=== PATIENT | female | born 1965 | race Caucasian/White ===

== ENCOUNTER → 2022-12-13 07:45 | Outpatient (BNVA) | payer MEDICARE, SELFPAY | PROVIDERS: PCP Nurse Practitioner Family; Referring Provider Nurse Practitioner Family; Visit Provider Specialist | DX: R20.0 Anesthesia of skin (principal); R20.2 Paresthesia of skin; Z98.890 Other specified postprocedural states | CPT/HCPCS: 95910; 95912 ==

== ENCOUNTER → 2022-12-22 12:38 | Outpatient (BNVA) | payer MEDICARE, SELFPAY | PROVIDERS: PCP Nurse Practitioner Family; Referring Provider Nurse Practitioner Family; Visit Provider Student in an Organized Health Care Education/Training Program | DX: G56.01 Carpal tunnel syndrome, right upper limb (principal); R20.0 Anesthesia of skin; R20.2 Paresthesia of skin | CPT/HCPCS: 20526; 99204; J3301 ==

== ENCOUNTER → 2023-02-16 10:44 | Outpatient (BNVA) | payer MEDICARE, SELFPAY | PROVIDERS: PCP Nurse Practitioner Family; Visit Provider Student in an Organized Health Care Education/Training Program | DX: G56.01 Carpal tunnel syndrome, right upper limb (principal); M18.12 Unilateral primary osteoarthritis of first carpometacarpal joint, left hand; R20.0 Anesthesia of skin; R20.2 Paresthesia of skin | CPT/HCPCS: 20600; 73130; 99213 ==

== ENCOUNTER → 2023-03-23 09:56 | Outpatient (BNVA) | payer MEDICARE, SELFPAY | PROVIDERS: PCP Nurse Practitioner Family; Visit Provider Student in an Organized Health Care Education/Training Program | DX: M18.12 Unilateral primary osteoarthritis of first carpometacarpal joint, left hand (principal); G56.03 Carpal tunnel syndrome, bilateral upper limbs | CPT/HCPCS: 99214 ==

== ENCOUNTER 2023-04-11 10:02 | Day surgery (SDC) | payer MEDICARE, SELFPAY ==
[2023-04-10 12:43] VITALS: BMI 23.3
[2023-04-11] VITALS (10 sets, daily range): BP systolic 112–143; BP diastolic 73–102; PULSE 73–89; RESP 16–18; TEMP 36.1–36.5; O2SAT 97–100
--- NOTE | 2023-04-11 | XR_ITS ---
WS: [id number] views of the left first finger, 04/11/2023 Clinical Data: [facility] Comparison: Left hand, 02/16/2023 Findings: Dr. Bourne removed the left trapezium XR/XR finger LT min 2V [id number] Impression: Removal of left trapezium.
--- NOTE | 2023-04-11 10:32 | W.PM.OPSUD ---
Surgery/Procedure H&P Update DATE OF PROCEDURE: April 11, 2023 DATE H&P PERFORMED: 03/23/23 CHANGES TO PREVIOUS DOCUMENTATION: None. No change in patient's HPI since office visit. She continues to examine with positive carpal tunnel symptoms with a positive Tinel's median nerve compression test and Phalen's the left side. She also has positive CMC grind test and severe tenderness to palpation over the CMC joint. Patient's failed corticosteroid injections with me and today she states she had remembered that she did have a injection back when she was in [place] roughly a couple years ago. So at this point time she is failed to corticosteroid injections that only provided temporary relief. Ultimately she understands and agrees to proceed with surgical intervention with plan for left thumb basal joint arthroplasty and left carpal tunnel release surgery. She understands the risk benefits complication alternatives with surgical nonsurgical treatment options. Patient understands agrees with current plan. All questions answered. PREOP DIAGNOSIS: Left thumb basal joint arthritis, left carpal Tunnel syndrome PRIMARY INDICATION FOR PROCEDURE: Left thumb basal joint arthritis failed conservative treatment, left carpal tunnel syndrome PLANNED PROCEDURE: Operation Date: 04/11/23 11:30 Proposed Procedures p Left carpal tunnel release: 41784 Left thumb basil joint arthroscopy;74705, G56.02(Left) - Mian Bourne DO s Finger Joint Arthroplasty(Left) - Mian Bourne DO
[2023-04-11] MEDS: sodium chloride 0.9% 1,000 ML 30 ML IV (10:40)
[2023-04-11] MEDS: ketorolac 30 mg/mL INJ IVP (10:42)
[2023-04-11] MEDS: acetaminophen 1,000 MG/100 ML PIGGYBACK 400 MG IV (10:44)
--- NOTE | 2023-04-11 11:05 | ANES.PREANE2 ---
Pre-Anesthetic Assessment Height/Weight: Height 1.57 m Weight 58.06 kg Temp Pulse Resp BP Pulse Ox O2 Del Method 97.6 F 88 18 143/73 97 Room Air 04/11/23 10:16 04/11/23 10:16 04/11/23 10:16 04/11/23 10:16 04/11/23 10:16 04/11/23 10:24 Preop Diagnosis: Left thumb basal joint arthritis, left carpal Tunnel syndrome Operation Date: 04/11/23 11:30 Proposed Procedures p Left carpal tunnel release: 43579 Left thumb basil joint arthroscopy;18979, G56.02(Left) - Mian Bourne DO s Finger Joint Arthroplasty(Left) - Mian Bourne DO Familial anesthetic complications: None Was Beta Toshia taken within 24 hours: N/A Was Clonidine taken within 24 hours: N/A Last intake: Intake Last Liquid Date 04/10/23 Last Liquid Time 21:00 Last Solid Date 04/10/23 Last Solid Time 21:00 Social Alcohol and No tobacco up to 4 cocktails a night Exam alert, oriented x 3, clear to auscultation bilaterally and regular rate & rhythm Airway Mallampati: Class I Dentition: chipped History/ROS No significant complaints Anesthetic Plan ASA status: 2 Anesthesia: Choice Risk of > 500 ml blood loss (7ml/kg in children): No Medications/Allergies Home Medications Medication Instructions Recorded Confirmed Last Taken Type acetaminophen 325 mg capsule 650 mg PO BID PRN Pain, Mild 01/19/23 04/10/23 04/10/23 History (Tylenol) bupropion HCl 150 mg 24 hr tablet, 150 mg PO QAM #30 tabs 02/22/23 04/10/23 04/10/23 Rx extended release (Wellbutrin XL) cyclobenzaprine 10 mg tablet 10 mg PO .HS PRN muscle spasm #30 02/22/23 04/10/23 04/10/23 Rx tabs hydroxyzine HCl 25 mg tablet 100 mg PO .HS PRN insomnia #120 02/22/23 04/10/23 04/10/23 Rx tabs lamotrigine 200 mg tablet 200 mg PO DAILY #30 tabs 03/07/23 04/10/23 04/10/23 Rx (Lamictal) escitalopram oxalate 20 mg tablet 20 mg PO DAILY 04/10/23 04/10/23 04/10/23 History (Lexapro) Allergies Allergy/AdvReac Type Severity Reaction Status Date / Time codeine Allergy ADR-Nausea Verified 04/10/23 11:03 naltrexone AdvReac Severe Headaches, Verified 04/10/23 11:03 nausea trazodone AdvReac Intermediate Vomiting. Verified 04/10/23 11:03 excelon AdvReac Severe Dizzy, N & Uncoded 03/23/23 10:13 V, Diarrhea, shaky Current Medications Generic Name Dose Route Start Last Admin Trade Name Freq PRN Reason Stop Dose Admin Sodium Chloride 1,000 mls @ 30 mls/hr 04/11/23 10:15 04/11/23 10:40 Sodium Chloride 0.9% IV 04/12/23 10:14 30 mls/hr .Q24H CORBIN Administration PFSH Anesthesia Medical History Psychiatric care Right carpal tunnel syndrome Social History Smoking and tobacco status: never smoked Alcohol intake: never Substance/Drug Use: never Data Anesthesia Cardiac Studies: No Data to Display
--- NOTE | 2023-04-11 12:12 | ANES.PROC ---
Anesthesia Procedures Procedure/Date: 04/11/23 Nerve Block ^: Nerve Block 1: Main Anesthesia: general anesthesia Time Out Performed: Yes Consent: requested by attending/covering physician, from patient, risks and benefits reviewed and patient agrees to proceed Nerve block location: axillary (L) Anesthesia monitors applied: pulse oximetry, EKG and BP cuff Nerve block position: supine Anesthetic Used: ropivicaine 0.5% (30 ml) Ultrasound used to: recognize landmarks and visualize and ID brachial plexus Nerve Stimulator Used?: No Interscalene/Femoral BLK: 2 stimuplex 22 g needle used for position and inplane approach, visualize local anesthetic spread and no vascular puncture identified Injection: neg aspiration of heme Patient Tolerated Procedure: well and no complications
[2023-04-11] MEDS: ceFAZolin 2,000 MG in sodium chloride 0.9% (plus) 50 ML 100 MG IV (12:17)
[2023-04-11] MEDS: lidocaine-epi 1% 20 mL INJ INJECTION (12:54)
[2023-04-11] MEDS: gelatin 12-7 mm Sponge 1 EACH TOPICAL (13:38)
--- NOTE | 2023-04-11 14:08 | PM.OP2 ---
Brief Operative Note Date of procedure: 04/11/23 Pre-op diagnosis: Left carpal tunnel syndrome, left thumb basal joint arthritis Post-op diagnosis: same Procedure Done: Left carpal tunnel release Left median nerve neurolysis Left thumb basal joint arthroplasty and APL tendon slip transfer Surgeon: Mian Bourne Estimated blood loss (mL): 5 Complications: None Post-op Plan: Patient taken to PACU in stable condition recovering well. Splint on in place clean dry and intact patient receive appropriate discharge instruction as well as pain medication postoperatively. Plan to follow-up in the orthopedic office in 2 weeks for recheck on the incision. Patient understands with any questions or concerns contact the office. Condition: stable Disposition: same day Coding Level of Care Code Acute Code for Scott Suarez
--- NOTE | 2023-04-11 14:08 | PM.PACU ---
PACU note Narrative: Patient taken to PACU in stable condition pain controlled. Patient has regional anesthesia on in place unable to assess motor or sensory at this time. Patient's distal pulses palpable prior to dressing application as well as fingertips are warm well-perfused brisk capillary refill less than 2 seconds dressings clean dry and intact with a thumb spica splint Exam: awake Disposition: discharged
--- NOTE | 2023-04-11 14:09 | P.OP_ITS ---
Operative Report Date of procedure: April 11, 2023 Pre-op diagnosis: Preop Diagnosis Left thumb basal joint arthritis, left carpal Tunnel syndrome Procedure: Procedure done: Left thumb basal joint arthroplasty and APL tendon slip transfer Left carpal tunnel release Left median nerve neurolysis Implants: Arthrex fiber lock suspension implant kit for basal joint arthroplasty Surgeon: Mian Bourne DO Estimated blood loss: 5mL Tourniquet time: 58min Complications: none Condition: stable Disposition: same day Brief History: Patient's been seen and worked up in the outpatient setting.? Findings consistent with a Left thumb basal joint severe arthritis and left carpal tunnel syndrome.? This is failed conservative treatment she is underwent injections as well as bracing at this point her last injection only provided minimal relief and at this point time her only other treatment option surgical intervention of the left thumb basal joint.? Patient's symptomatology of left carpal tunnel and median nerve paresthesias with provocative symptoms on examination for carpal tunnel has returned as patient had a history of a left carpal tunnel release back in the early 90s. At this point in time given her classic carpal tunnel findings I feel she has developed a recurrence of the left carpal tunnel syndrome and she would like to have this addressed while getting her left thumb surgery as well. We talked about surgery in detail about the risk benefits complication alternatives to surgical nonsurgical treatment options.? At this point time her persistent pain is causing her significant issues.? She does understand with the basal joint arthroplasty potential loss of range of motion as well as strength but ultimately this would provide her with significant pain relief.? Through shared decision making she elects proceed with surgical intervention of left carpal tunnel release and left thumb basal joint arthroplasty.? Once again she understands risk benefits complication alterna tives to each treatment option understanding risk elects to proceed with surgery. Procedure: Patient seen evaluated in the preoperative holding area.? Consent was signed and reviewed with patient.? Correct extremity marked.? Once cleared by anesthesia patient was taken back to the operative suite.? Underwent anesthesia per the anesthesia department.? Patient was placed in supine position all bony prominences well-padded patient was properly secured to the bed.? Underwent anesthesia for the anesthesia department.? A armboard was placed to the left upper extremity a nonsterile tourniquet applied to the left upper arm.? Once appropriately anesthetized left upper extremity was then prepped and draped in standard orthopedic fashion.? Final timeout performed.? Patient received appropriate preoperative antibiotics. Esmarch was used exsanguinate the left upper extremity and tourniquet was insufflated to 250 mmHg. I then made a standard mini open left carpal tunnel incision directly over the previous incision site. This was made in line with the fourth ray starting distally at Liz's cardinal line extending proximally just distal to the wrist crease.? This was made in patient's palmar crease longitudinally.? Sharp scalpel incision was made through skin.? I then placed a self-retaining retractor and spread longitudinally identified the palmar fascia which was then split.? Next m y self-retaining retractor was placed deep and I had direct visualization of the recurrent and scarred transverse carpal ligament. This was noted to be significantly thickened. I then utilizing scalpel incised and feathered through the transverse carpal ligament till entered the carpal tunnel.? Once I did this I switched to Littler dissection scissors and completed the carpal tunnel release surgery distally releasing all of the transverse carpal ligament into the palmar fat with care to protect the recurrent branch as well as the superficial palmar arch.? Once the distal release was performed I then switched to have my it assistant placed retraction above the transverse carpal ligament I then under loupe magnification had direct visualization of the transverse carpal ligament.? I utilized dissection scissors curved ulnarly away from the palmar cutaneous branch and protection of this and released the transverse carpal ligament to its entirely proximally into the median antebrachial fascia then I subsequently switched to a [place] and confirmed adequate complete decompression of the carpal tunnel both proximally and distally.? Satisfied with my release and then inspected the contents the carpal tunnel tendons were healthy. The nerve was had significant adhesions and scar tissue within the carpal tunnel as a result utilizing dissection scissors I subsequently performed a neurolysis of the median nerve for appropriate decompression of the carpal tunnel as well as neurolysis. Nerve did appear to be healthy but had been compressed an hourglass shape but overall no masses the nerve appeared to have healthy potential for recovery.? Wound was then thoroughly irrigated.? A wet Ray-Vonda was then placed into the incision and I then proceeded with left thumb basal joint arthroplasty. ? I then utilized a 15 blade in standard longitudinal fashion directly over the left thumb basal joint .? Sharp scalpel incision was made through skin only.? I then switched to Littler dissection scissors and dissected out the dorsal cutaneous branches which were protected throughout this case.? I then identified the APL and EPL tendons.? I then performed a first dorsal compartment release under direct visualization with loupe magnification.? At this point time I then mobilized the tendons with a blunt wheatie self retractor and went through this interval.? Next I was directly onto the CMC joint dorsal capsule.? I then subsequently utilized my dissection scissors to dissect out the radial artery which was then identified and protected by my it assistant throughout this case with a Kasdan retractor.? Once I identified the radial artery and dorsal branch I then subsequently performed my capsulotomy of the first CMC joint with [place] blade..? I then introduced a [place] into the arthritic space at the first CMC joint.? This was confirmed with mini C arm to be the appropriate bone prior to performing my trapeziectomy.? The trapezium was then shelled out and its entirety with a McClamary elevator with care to protect and not injure any of my remaining carpal bone articular cartilage as well as not to damage the/injure the radial artery as it was protected throughout the case.? This was then removed and identified the FCR within the floor of my incision.? Trapeziectomy was complete and confirmed on mini C arm. At this point time I thoroughly irrigated and removed of all residual bony debris.? A [place] was placed into the STT joint and joint was inspected and this was found to be free of arthritic changes. I then subsequently plan to proceed with utilizing Arthrex fiber lock suspensioplasty kit which was then opened and then subsequently drilled into the second metacarpal base.? Once I confirm my appropriate placement with mini C arm all suture anchor.? Once this was confirmed appropriate placement I then drilled the impacted and deployed the bicortical suture anchor.? This had excellent tension and could lift the arm off of the table with its fixation.? I then subsequently identified the radial aspect of the first metacarpal and at its mid substance on the radial aspect I subsequently drilled tapped and holding the thumb in appropriate adduction with not over distraction keeping it in line with the base of the second and subsequently loaded suturetape under appropriate tension and thumb positioning keeping the thumb in adduction and appropriate length impacted this suture anchor which had excellent fixation and the excess suture was then removed.? This was then confirmed to have excellent axial stability and an appropriate suspensioplasty.? In order to help add with fixation& interposition within the voided space from the trapeziectomy I then identified a slip of the APL which was then harvested proximally and then weaved this through the FCR tendon twice and then tied this onto the APL tendon itself which created a soft tissue interposition as well as added appropriate abduction to the thumb with appropriate thumb position.? This was then secured with 2 horizontal mattress stitches with 4-0 FiberWire.? I then took the excess of the APL tendon and then placed this within the voided space as a interposition.? I then subsequently had the tourniquet deflated.? Hemostasis was satisfactory.? I then took some Gelfoam to add for soft tissue and interposition within the voided space and hemostasis.? I then closed the capsule with Monocryl suture.? Wound bed was once again thoroughly irrigated.? I then closed the incision with deep 3-0 Vicryl and nylon sutures for skin.? Final x-rays with mini C arm were then taken showing stable trapeziectomy with soft tissue and suture anchor interposition.? Thumb had excellent axial stability as well as appropriate positioning.? Patient was then dressed with 4 x 4's ABD Curlex and a thumb spica splint.? With an Gael wrap.? Patient was awakened from anesthesia and taken to PACU in stable condition. Disposition: Patient taken to PACU in stable condition recovering well.? Patient will receive appropriate discharge instructions as well as pain medication postoperatively.? Patient will follow therapy protocol with OT hand therapy for basal joint arthroplasty.? Patient understands agrees with current plan.? All questions answered.? We will see me in the office in 2 weeks.
--- NOTE | 2023-04-11 16:16 | ANE.PACU2 ---
Inpatient post-anesthesia follow up: Airway intact: Yes Vital signs: Temperature 97.0 F Pulse Rate 73 Respiratory Rate 18 Blood Pressure 133/102 Pulse Oximetry 98 Oxygen Delivery Me thod Room Air Oxygen Flow Rate 6 Fraction of Inspir ed Oxygen Hydration adequate: Yes Nausea and vomiting: No Pain level: 1 Mental status: Baseline
== END 2023-04-11 15:10 | disposition home or self-care (01) ==
PROVIDERS: PCP Nurse Practitioner Family; Visit Provider Student in an Organized Health Care Education/Training Program
PROC: (CPT 64721; principal; 2023-04-11 11:20)
PROC: (CPT 26535; 2023-04-11 11:20)
PROC: (CPT 25310; 2023-04-11 11:20)
DX: G56.02 Carpal tunnel syndrome, left upper limb (principal); M18.12 Unilateral primary osteoarthritis of first carpometacarpal joint, left hand
CPT/HCPCS: 25310; 25447; 64721; 73140; 76000; C1713; J0131; J0690; J1100; J1885; J2405; J2704; J2795; J3010; J7030

== ENCOUNTER 2023-04-27 14:48 | Outpatient (CLI) | payer MEDICARE, SELFPAY | END 2023-04-27 14:49 | disposition home or self-care (01) | LOC: SPT 14:48 | PROVIDERS: PCP Nurse Practitioner Family; Visit Provider Nurse Practitioner Family | DX: Z46.89 Encounter for fitting and adjustment of other specified devices (principal); M18.12 Unilateral primary osteoarthritis of first carpometacarpal joint, left hand; Z98.890 Other specified postprocedural states | CPT/HCPCS: 97760; 99024; L3809 ==

== ENCOUNTER → 2023-05-01 09:28 | Outpatient (BNVA) | payer MEDICARE, SELFPAY | PROVIDERS: PCP Nurse Practitioner Family; Visit Provider Student in an Organized Health Care Education/Training Program | DX: Z98.890 Other specified postprocedural states (principal) | CPT/HCPCS: 73130; 99024 ==

== ENCOUNTER 2023-05-02 07:47 | Outpatient (RCR) | payer MEDICARE, SELFPAY | END 2023-05-26 23:59 | disposition home or self-care (01) | LOC: SOT 07:47 | PROVIDERS: Visit Provider Nurse Practitioner Family | DX: Z47.89 Encounter for other orthopedic aftercare (principal) | CPT/HCPCS: 97022; 97110; 97140; 97166; 97530 ==

== ENCOUNTER → 2023-05-16 12:50 | Outpatient (BNVA) | payer MEDICARE, SELFPAY | PROVIDERS: PCP Nurse Practitioner Family; Visit Provider Specialist | DX: R41.89 Other symptoms and signs involving cognitive functions and awareness (principal); F07.81 Postconcussional syndrome | CPT/HCPCS: 99205 ==

== ENCOUNTER 2023-05-27 06:00 | Outpatient (RCR) | payer MEDICARE, SELFPAY | END 2023-06-26 23:59 | disposition home or self-care (01) | LOC: SOT 06:00 | PROVIDERS: PCP Nurse Practitioner Family; Visit Provider Nurse Practitioner Family | DX: Z47.89 Encounter for other orthopedic aftercare (principal) | CPT/HCPCS: 97022; 97110; 97140 ==

== ENCOUNTER → 2023-06-05 07:58 | Outpatient (BNVA) | payer MEDICARE, SELFPAY | PROVIDERS: PCP Nurse Practitioner Family; Visit Provider Student in an Organized Health Care Education/Training Program | DX: M18.12 Unilateral primary osteoarthritis of first carpometacarpal joint, left hand (principal); G56.02 Carpal tunnel syndrome, left upper limb; Z98.890 Other specified postprocedural states | CPT/HCPCS: 99024 ==

== ENCOUNTER → 2023-06-09 08:01 | Outpatient (BNVA) | payer MEDICARE, SELFPAY | PROVIDERS: PCP Nurse Practitioner Family; Visit Provider Podiatrist Foot & Ankle Surgery | DX: M20.5X1 Other deformities of toe(s) (acquired), right foot (principal) | CPT/HCPCS: 73630; 99203 ==

== ENCOUNTER → 2023-06-16 09:57 | Outpatient (BNVA) | payer MEDICARE, SELFPAY | PROVIDERS: PCP Nurse Practitioner Family; Visit Provider Podiatrist Foot & Ankle Surgery | DX: B35.1 Tinea unguium (principal); M20.5X1 Other deformities of toe(s) (acquired), right foot | CPT/HCPCS: 36415; 80053; 99213 ==

== ENCOUNTER 2023-06-21 06:00 | Outpatient (CLI) | payer MEDICARE, SELFPAY | END 2023-06-21 06:01 | disposition home or self-care (01) | LOC: SOT 06-22 09:23 | PROVIDERS: PCP Nurse Practitioner Family; Visit Provider Student in an Organized Health Care Education/Training Program | DX: Z98.890 Other specified postprocedural states (principal) | CPT/HCPCS: 97022; 97110; 97140 ==

== ENCOUNTER → 2023-06-30 10:58 | Outpatient (BNVA) | payer MEDICARE, SELFPAY | PROVIDERS: PCP Nurse Practitioner Family; Visit Provider Podiatrist Foot & Ankle Surgery | DX: B35.1 Tinea unguium | CPT/HCPCS: 99213 ==

== ENCOUNTER → 2023-07-04 08:08 | Outpatient (BNVA) | payer MEDICARE, SELFPAY | PROVIDERS: PCP Nurse Practitioner Family; Visit Provider Student in an Organized Health Care Education/Training Program | DX: G56.03 Carpal tunnel syndrome, bilateral upper limbs; Z98.890 Other specified postprocedural states; M18.12 Unilateral primary osteoarthritis of first carpometacarpal joint, left hand | CPT/HCPCS: 73130; 99214 ==

== ENCOUNTER 2023-07-19 05:52 | Day surgery (SDC) | payer MEDICARE, SELFPAY ==
[2023-07-18 11:39] VITALS: BMI 24.7
[2023-07-19] VITALS (8 sets, daily range): BP systolic 103–149; BP diastolic 57–96; PULSE 51–71; RESP 16–18; TEMP 36–36.3; O2SAT 97–100
[2023-07-19] MEDS: ketorolac 30 mg/mL INJ IVP (06:40)
[2023-07-19] MEDS: sodium chloride 0.9% 1,000 ML 30 ML IV (06:40)
[2023-07-19] MEDS: scopolamine 1.5 Patch 1 PATCH TRANSDERMA (06:40)
[2023-07-19] MEDS: acetaminophen 1,000 MG/100 ML PIGGYBACK 400 MG IV (06:41)
--- NOTE | 2023-07-19 07:00 | W.PM.OPSUD ---
Surgery/Procedure H&P Update DATE OF PROCEDURE: July 19, 2023 DATE H&P PERFORMED: 07/04/23 CHANGES TO PREVIOUS DOCUMENTATION: NOne, no change in HPI from office visit. PREOP DIAGNOSIS: Right Carpal Tunnel syndrome PRIMARY INDICATION FOR PROCEDURE: Right carpal tunnel syndrome PLANNED PROCEDURE: Operation Date: 07/19/23 07:00 Proposed Procedures p RIGHT CARPAL TUNNEL RELEASE 95059,G56.01(Right) - Mian Bourne DO
[2023-07-19] MEDS: ceFAZolin 2,000 MG in sodium chloride 0.9% (plus) 50 ML 100 MG IV (07:04)
--- NOTE | 2023-07-19 07:07 | P.ANESASSM_ITS ---
Pre-Anesthetic Assessment Height/Weight: Height 1.57 m Weight 61.235 kg Temp Pulse Resp BP Pulse Ox O2 Del Method 96.8 F L 65 18 148/96 100 Room Air 07/19/23 06:09 07/19/23 06:09 07/19/23 06:09 07/19/23 06:40 07/19/23 06:09 07/19/23 06:12 Preop Diagnosis: Right Carpal Tunnel syndrome Operation Date: 07/19/23 07:00 Proposed Procedures p RIGHT CARPAL TUNNEL RELEASE 88170,G56.01(Right) - Mian Bourne DO Familial anesthetic complications: none Was Beta Toshia taken within 24 hours: N/A Was Clonidine taken within 24 hours: N/A Last intake: Intake Last Liquid Date 07/18/23 Last Liquid Time 20:00 Last Solid Date 07/18/23 Last Solid Time 20:00 Social Alcohol and No tobacco Exam alert, oriented x 3, clear to auscultation bilaterally and regular rate & rhythm Airway Submandibular: within normal limits Cervical ROM: within normal limits Mallampati: Class II Dentition: full Neuropsych Anxiety and Depression Schizoaffective Anesthetic Plan ASA status: 2 Anesthesia: MAC Medications/Allergies Home Medications Medication Instructions Recorded Confirmed Last Taken Type acetaminophen 325 mg capsule 650 mg PO BID PRN Pain, Mild 01/19/23 07/18/23 07/18/23 History (Tylenol) cyclobenzaprine 10 mg tablet 10 mg PO .HS PRN muscle spasm #30 02/22/23 07/18/23 04/10/23 Rx tabs Left Thumb Spika #1 ea 04/27/23 07/04/23 Unknown Rx custom thumb spica brace #1 ea 05/12/23 07/04/23 Unknown Rx loratadine 10 mg tablet (Claritin) 10 mg PO DAILY 06/05/23 07/18/23 07/18/23 History brexpiprazole 0.5 mg tablet 0.5 mg PO DAILY #30 tabs 06/13/23 07/18/23 07/18/23 Rx (Rexulti) bupropion HCl 150 mg 24 hr tablet, 150 mg PO QAM #30 tabs 06/13/23 07/18/23 07/18/23 Rx extended release (Wellbutrin XL) hydroxyzine HCl 25 mg tablet 100 mg PO .HS PRN insomnia #120 06/13/23 07/18/23 07/17/23 Rx tabs lamotrigine 200 mg tablet 200 mg PO DAILY #30 tabs 06/13/23 07/18/23 07/18/23 Rx (Lamictal) terbinafine HCl 250 mg tablet 250 mg PO DAILY #30 tabs 06/16/23 07/18/23 07/18/23 Rx memantine 5 mg tablet 10 mg PO BID 60 days #240 tabs 07/18/23 07/18/23 07/18/23 Rx ondansetron 4 mg disintegrating 4 mg PO Q8H PRN nausea and 07/19/23 Unknown Rx tablet vomiting 3 days #9 tabs tramadol 50 mg tablet 50 mg PO Q6H PRN pain #20 tabs 07/19/23 Unknown Rx Allergies Allergy/AdvReac Type Severity Reaction Status Date / Time aripiprazole [From [facility]] Allergy Sleepiness, Verified 07/04/23 09:02 agitation, dizziness, fever, N & V. codeine Allergy ADR-Nausea Verified 07/04/23 09:02 naltrexone AdvReac Severe Headaches, Verified 07/04/23 09:02 nausea trazodone AdvReac Intermediate Vomiting. Verified 07/04/23 09:02 excelon AdvReac Severe Dizzy, N & Uncoded 07/04/23 09:02 V, Diarrhea, shaky Current Medications Generic Name Dose Route Start Last Admin Trade Name Freq PRN Reason Stop Dose Admin Sodium Chloride 1,000 mls @ 30 mls/hr 07/19/23 06:15 07/19/23 06:40 Sodium Chloride 0.9% IV 07/20/23 06:14 30 mls/hr .Q24H CORBIN Administration Scopolamine 1 patch 07/19/23 06:00 07/19/23 06:40 Scopolamine 1.5 Patch TRANSDERMA 1 patch ONCE PRN Administration anesthetic related nausea PFSH Anesthesia Medical History Autism Psychiatric care Right carpal tunnel syndrome Schizoaffective disorder, depressive type Social History Smoking and tobacco status: former smoker Alcohol intake: current Alcohol intake frequency: 0-2 Drinks per Day Substance/Drug Use: never Data Anesthesia Cardiac Studies: No Data to Display
[2023-07-19] MEDS: ROPivacaine 0.5% SDV 30 mL 150 MG INJECTION (07:28)
[2023-07-19] MEDS: lidocaine-epi 1% 20 mL INJ INJECTION (07:28)
--- NOTE | 2023-07-19 07:43 | PM.OP2 ---
Brief Operative Note Date of procedure: 07/19/23 Pre-op diagnosis: Right carpal tunnel syndrome Post-op diagnosis: same Procedure Done: Right carpal tunnel release Surgeon: Mian Bourne Estimated blood loss (mL): 5 Complications: none Post-op Plan: Postop Hand Orthopedic discharge instructions: Patient should leave dressing on in place for 72 hours after that may remove dressing, clean incision with warm soapy water pat dry and redress with a dry dressing or Band-Aid. Encourage finger range of motion as tolerated May weight-bear as tolerated to the operative extremity Elevation and ice as needed for pain and swelling Take pain medication as prescribed Take antinausea medication as needed May supplement with [id number] anti-inflammatories (make sure not to take more than 3000 mg of Tylenol in 1 day as your pain medication does have Tylenol in it) Follow-up in the orthopedic office in 2 weeks Contact the office for any questions or concerns Condition: stable Disposition: PACU Coding Level of Care Code Acute Code for Scott Suarez
--- NOTE | 2023-07-19 07:45 | PM.PACU ---
PACU note Narrative: Patient is a 58-year-old female that just underwent a right carpal tunnel release procedure. Patient transferred to PACU in stable condition. She is awake and alert and responding currently to questions. Pain is well controlled. Dressing on hand is dry and in place. Patient has good perfusion to fingers and is able to move fingers. Normal cap refill under 2 seconds. Patient has normal elbow range of motion. Unable to assess sensation due to residual localized anesthetic. Exam: awake Disposition: discharged
--- NOTE | 2023-07-19 07:54 | PM.OP ---
Operative Report Date of procedure: July 19, 2023 Pre-op diagnosis: Preop Diagnosis Right Carpal Tunnel syndrome, recurrent Hand Chain Maker: Yevgeniy Bourne PA-C Hand Chain Maker was necessary for retraction and protection of neurovascular structures and assisted in wound closure. Procedure: Post-op diagnosis: Same Procedure done: 1.?Right carpal tunnel?release Revision Surgeon: Mian Bourne DO Anesthesia: MAC (Local) Estimated blood loss: [?1]mL Tourniquet time [5 ]minutes IV fluids: See anesthesia?record Complications: None Findings: See operative?report narrative Condition: stable Disposition: same day Brief History: Patient is a pleasant [?58 ]year-old [F ] with?right carpal tunnel syndrome. History reveals patient had a right carpal tunnel release out in [place] back in the early s. She has had a recurrence of her carpal tunnel symptoms at this time. Patient has been worked up in the outpatient setting findings and physical examination consistent with this.? She has failed bracing and cortisone injection. Patient's failed conservative treatment would like to have her carpal tunnel released.? We detailed out patient's?risk benefits complication alternatives with surgical and nonsurgical treatment options. Through shared decision making, patient agrees to proceed with surgical intervention ? Patient understands and agrees with current plan.? All questions answered.? Procedure: Patient seen and evaluated in the preoperative holding area.? Consent was?reviewed and signed with patient.? Correct extremity was marked.? Patient was seen evaluated by the anesthesia department once cleared for surgery was brought back to the operative suite.? Patient was kept on [facility] in supine position all bony prominences were well-padded patient properly secured to the bed.??Right upper extremity was then placed onto an armboard.? A nonsterile tourniquet was applied to the?RIght upper arm.? Patient underwent anesthesia per the anesthesia department.? Patient's?Right upper extremity was then prepped and draped in standard orthopedic fashion.? Final timeout performed.? Patient?received appropriate preoperative antibiotics. Under sterile aseptic technique patient?received local anesthesia over the preplanned carpal tunnel incision site. Esmarch was used to exsanguinate the?Right upper extremity and tourniquet was insufflated to 250 mmHg. A standard mini open?Right carpal tunnel incision was made using previous incision.? Starting distally at Liz's cardinal line in line with the fourth?ray extending proximally distal to the wrist crease centered over the carpal tunnel.? Sharp scalpel incision was made through skin and subcutaneous tissue.? Self-retaining?retractor was placed and the palmar fascia was identified.? This was then split longitudinally and direct visualization of the recurrent scar tissue and new transverse carpal ligament was then made.? I then utilizing scalpel feathered through the transverse carpal ligament until I entered the floor of the transverse carpal tunnel ligament into the carpal tunnel.? Next I switched to dissection scissors and completed my?release of the transverse carpal ligament distally with care to protect the?recurrent motor branch.? I completely?released into the palmar fat and until no entrapment was noted distally.? Care was made to protect the superficial palmar arch during my distal dissection.??A [place] was used to show no areas of entrapment distally. Next turned my attention proximally. Next I utilized a nasal speculum placed on top of the transverse carpal ligament and utilize this to?retract the subcutaneous fat and tissue and under direct loupe magnification was able to identify the transverse carpal ligament.? Next I then placed a [place] underneath the transverse carpal tunnel ligament to protect the contents of the carpal tunnel and subsequently utilizing dissection scissors under loupe magnification completely?released the transverse carpal ligament proximally into the median antebrachial fascia.? Care was made to protect the palmar cutaneous branch by keeping my scissors curved ulnarly.? Once completely?released, I then placed my [place] and had appropriate decompression of the carpal tunnel proximally as well as distally.? I then inspected the contents of the carpal tunnel which showed an hourglass shape of the median nerve showing its compression.? No masses were noted.? Tendons appeared healthy.? Incisions were then thoroughly irrigated.? Tourniquet deflated.? Hemostasis satisfactory with bipolar electrocautery.? I then closed the incisions with interrupted nylon stitches.? Xeroform 4 x 4's and a bulky soft dressing was applied.? Patient was then awakened from anesthesia and taken to PACU in stable condition.? Patient tolerated procedure without complications. Disposition: Patient taken to PACU in stable condition?recovering well.? Dressing clean dry and intact.? Patient will?receive appropriate discharge instructions as well as pain medication postoperatively.? Patient to follow-up with me in the office in 2 weeks.? They understand they may be weightbearing as tolerated to the?right hand.? Patient should keep incision clean dry and intact.? Patient understands if any questions or concerns may contact the office.
--- NOTE | 2023-07-19 15:04 | ANE.PACU2 ---
Inpatient post-anesthesia follow up: Airway intact: Yes Vital signs: Temperature 97.0 F Pulse Rate 51 Respiratory Rate 17 Blood Pressure 149/70 Pulse Oximetry 100 Oxygen Delivery Me thod Room Air Oxygen Flow Rate Fraction of Inspir ed Oxygen Hydration adequate: Yes Nausea and vomiting: No Pain level: 2 Mental status: Baseline
== END 2023-07-19 08:45 | disposition home or self-care (01) ==
PROVIDERS: PCP Nurse Practitioner Family; Visit Provider Student in an Organized Health Care Education/Training Program
PROC: (CPT 64721; principal; 2023-07-19 07:00)
DX: G56.01 Carpal tunnel syndrome, right upper limb (principal); Z87.891 Personal history of nicotine dependence; F84.0 Autistic disorder
CPT/HCPCS: 64721; J0131; J0690; J1100; J1885; J2250; J2405; J2704; J2795; J3010; J7030

== ENCOUNTER → 2023-07-25 10:59 | Outpatient (BNVA) | payer MEDICARE, SELFPAY | PROVIDERS: PCP Nurse Practitioner Family; Visit Provider Nurse Practitioner Family | DX: Z98.890 Other specified postprocedural states (principal); B35.1 Tinea unguium; M20.5X1 Other deformities of toe(s) (acquired), right foot | CPT/HCPCS: 36415; 80053; 99024; 99213; 99214 ==

== ENCOUNTER 2023-07-26 07:41 | Outpatient (CLI) | payer MEDICARE, SELFPAY ==
[2023-07-26 08:10] LABS: Estmated Average Glucose 108; Hemoglobin A1C 5.4 % (4.0-6.0)
[2023-07-26 08:18] LABS: Chol HDL Ratio 3.37 mg/dL (0.0-4.40); Cholesterol 246 mg/dL (0-200); HDL Cholesterol 73 mg/dL (60-100); LDL Cholesterol Calculated 137 mg/dL (50-129); LDL HDL Ratio 1.88 RATIO (0.00-3.22); Triglycerides 178 mg/dL (0-150)
== END 2023-07-26 07:42 | disposition home or self-care (01) ==
LOC: LAB 07:44
PROVIDERS: PCP Nurse Practitioner Family; Visit Provider Nurse Practitioner
DX: Z79.899 Other long term (current) drug therapy (principal)
CPT/HCPCS: 36415; 80061; 83036

== ENCOUNTER → 2023-07-27 08:07 | Outpatient (BNVA) | payer MEDICARE, SELFPAY | PROVIDERS: PCP Nurse Practitioner Family; Visit Provider Nurse Practitioner Family | DX: Z98.890 Other specified postprocedural states (principal) | CPT/HCPCS: 99024; 99213 ==

== ENCOUNTER 2023-08-08 06:00 | Outpatient (RCR) | payer MEDICARE, SELFPAY | END 2023-08-26 23:59 | disposition home or self-care (01) | LOC: SOT 06:00 | PROVIDERS: PCP Nurse Practitioner Family; Visit Provider Student in an Organized Health Care Education/Training Program | DX: Z47.89 Encounter for other orthopedic aftercare (principal) | CPT/HCPCS: 97165 ==

== ENCOUNTER → 2023-08-08 07:36 | Outpatient (BNVA) | payer MEDICARE, SELFPAY | PROVIDERS: PCP Nurse Practitioner Family; Visit Provider Student in an Organized Health Care Education/Training Program | DX: G56.01 Carpal tunnel syndrome, right upper limb (principal); Z98.890 Other specified postprocedural states | CPT/HCPCS: 99024; 99213 ==

== ENCOUNTER 2023-08-09 07:03 | Day surgery (SDC) | payer MEDICARE, SELFPAY ==
[2023-08-08 12:21] VITALS: BMI 24.7
[2023-08-09] VITALS (14 sets, daily range): BP systolic 98–165; BP diastolic 65–99; PULSE 68–82; RESP 14–16; TEMP 36.1–36.8; O2SAT 93–100
--- NOTE | 2023-08-09 | XR_ITS ---
WS: [id number] C-ARM RADIOGRAPHS RIGHT FOOT; 3 IMAGES HISTORY: BISMARK PICS COMPARISON: None available. Intraoperative pin fixation at the second, third and fourth phalanges. Pins extend across the metatar sophalangeal joints. There is also plate and screw fixation at the first metatarsophalangeal joint. IMPRESSION: Intraoperative imaging during fixation at the first through fourth metatarsophalangeal joints.
[2023-08-09] MEDS: acetaminophen 1,000 MG/100 ML PIGGYBACK 400 MG IV (07:55)
[2023-08-09] MEDS: gabapentin 300 mg Capsule PO (07:58)
[2023-08-09] MEDS: sodium chloride 0.9% 1,000 ML 30 ML IV (08:04)
--- NOTE | 2023-08-09 09:48 | P.ANESASSM_ITS ---
Pre-Anesthetic Assessment Height/Weight: Height 1.57 m Weight 61.235 kg Temp Pulse Resp BP Pulse Ox O2 Del Method 97.4 F L 73 14 165/77 100 Room Air 08/09/23 07:27 08/09/23 07:27 08/09/23 07:27 08/09/23 07:27 08/09/23 07:27 08/09/23 07:27 Preop Diagnosis: Right hallux rigidus, hammertoes right foot Operation Date: 08/09/23 08:30 Proposed Procedures p ?Right foot first metatarsal phalangeal joint arthrodesis CPT 99474,M20.21,M20.41(Right) - Eleuterio Monique DPM s right second hammertoe correction CPT 69687, right third hammertoe correction CPT 03756, right fourth hammertoe correction CPT 49815(Right) - Eleuterio Monique DPM s right second toe flexor digitorum longus to extensor digitorum longus tendon transfer CPT 05428, right third toe flexor digitorum longus to extensor digitorum longus tendon transfer CPT 64792, right fourth toe flexor digitorum longus to extensor digitorum longus tendon transfer CPT 08488(Right) - Eleuterio Monique DPM Familial anesthetic complications: none Last intake: Intake Last Liquid Date 08/08/23 Last Liquid Time 22:00 Last Solid Date 08/08/23 Last Solid Time 22:00 Social No alcohol and No tobacco Exam alert, oriented x 3, clear to auscultation bilaterally and regular rate & rhythm Airway Submandibular: within normal limits Cervical ROM: within normal limits Mallampati: Class II Dentition: full GI Gastroesophageal Reflux Disease Neuropsych Anxiety, Bipolar and Depression Schizoaffective Anesthetic Plan ASA status: 2 Anesthesia: General and Regional (specify below) (pop blk) Medications/Allergies Home Medications Medication Instructions Recorded Confirmed Last Taken Type acetaminophen 325 mg capsule 650 mg PO BID PRN Pain, Mild 01/19/23 08/08/23 07/18/23 History (Tylenol) cyclobenzaprine 10 mg tablet 10 mg PO .HS PRN muscle spasm #30 02/22/23 08/08/23 04/10/23 Rx tabs Left Thumb Spika #1 ea 04/27/23 08/08/23 Unknown Rx custom thumb spica brace #1 ea 05/12/23 08/08/23 Unknown Rx loratadine 10 mg tablet (Claritin) 10 mg PO DAILY 06/05/23 08/08/23 07/18/23 History hydroxyzine HCl 25 mg tablet 100 mg PO .HS PRN insomnia #120 06/13/23 08/08/23 1 Week Ago Rx tabs ~08/01/23 terbinafine HCl 250 mg tablet 250 mg PO DAILY #30 tabs 06/16/23 08/08/23 07/18/23 Rx memantine 5 mg tablet 10 mg PO BID 60 days #240 tabs 07/19/23 08/08/23 08/08/23 Rx tramadol 50 mg tablet 50 mg PO Q6H PRN pain #20 tabs 07/19/23 08/08/23 Unknown Rx brexpiprazole 0.5 mg tablet 0.5 mg PO DAILY #90 tabs 07/25/23 08/08/23 08/08/23 Rx (Rexulti) bupropion HCl 150 mg 24 hr tablet, 150 mg PO QAM #90 tabs 07/25/23 08/08/23 08/08/23 Rx extended release (Wellbutrin XL) lamotrigine 200 mg tablet 200 mg PO DAILY #90 tabs 07/25/23 08/08/23 Unknown Rx (Lamictal) ondansetron 4 mg disintegrating 4 mg PO Q8H 07/25/23 08/08/23 Unknown History tablet Allergies Allergy/AdvReac Type Severity Reaction Status Date / Time aripiprazole [From [facility]] Allergy Sleepiness, Verified 08/09/23 07:25 agitation, dizziness, fever, N & V. codeine Allergy ADR-Nausea Verified 08/09/23 07:25 naltrexone AdvReac Severe Headaches, Verified 08/09/23 07:25 nausea trazodone AdvReac Intermediate Vomiting. Verified 08/09/23 07:25 excelon AdvReac Severe Dizzy, N & Uncoded 08/09/23 07:25 V, Diarrhea, shaky Current Medications Generic Name Dose Route Start Last Admin Trade Name Freq PRN Reason Stop Dose Admin Sodium Chloride 1,000 mls @ 30 mls/hr 08/09/23 07:30 08/09/23 08:04 Sodium Chloride 0.9% IV 08/10/23 07:29 30 mls/hr .Q24H CORBIN Administration PFSH Anesthesia Medical History [facility] Psychiatric care Right carpal tunnel syndrome Schizoaffective disorder, depressive type Surgical History Postoperative state Social History Smoking and tobacco status: former smoker Alcohol intake: current Alcohol intake frequency: 0-2 Drinks per Day Substance/Drug Use: never Data Anesthesia Cardiac Studies: No Data to Display
--- NOTE | 2023-08-09 10:03 | P.HPUD_ITS ---
Surgery/Procedure H&P Update DATE OF PROCEDURE: August 09, 2023 DATE H&P PERFORMED: 07/25/23 CHANGES TO PREVIOUS DOCUMENTATION: No changes PREOP DIAGNOSIS: Right hallux rigidus, hammertoes right foot PLANNED PROCEDURE: Operation Date: 08/09/23 08:30 Proposed Procedures p ?Right foot first metatarsal phalangeal joint arthrodesis CPT 39781,M20.21,M2 0.41(Right) - Eleuterio Monique DPM s right second hammertoe correction CPT 87944, right third hammertoe correction CPT 97142, right fourth hammertoe correction CPT 78100(Right) - Eleuterio Monique DPM s right second toe flexor digitorum longus to extensor digitorum longus tendon transfer CPT 23780, right third toe flexor digitorum longus to extensor digitorum longus tendon transfer CPT 94298, right fourth toe flexor digitorum longus to extensor digitorum longus tendon transfer CPT 06664(Right) - Eleuterio Monique DPM
--- NOTE | 2023-08-09 10:03 | W.PM.OPSUD ---
Surgery/Procedure H&P Update DATE OF PROCEDURE: August 09, 2023 DATE H&P PERFORMED: 07/25/23 CHANGES TO PREVIOUS DOCUMENTATION: No changes PREOP DIAGNOSIS: Right hallux rigidus, hammertoes right foot PLANNED PROCEDURE: Operation Date: 08/09/23 08:30 Proposed Procedures p ?Right foot first metatarsal phalangeal joint arthrodesis CPT 69654,M20.21,M20.41(Right) - Eleuterio Monique DPM s right second hammertoe correction CPT 79035, right third hammertoe correction CPT 68049, right fourth hammertoe correction CPT 11021(Right) - Eleuterio Monique DPM s right second toe flexor digitorum longus to extensor digitorum longus tendon transfer CPT 69754, right third toe flexor digitorum longus to extensor digitorum longus tendon transfer CPT 16075, right fourth toe flexor digitorum longus to extensor digitorum longus tendon transfer CPT 13655(Right) - Eleuterio Monique DPM
[2023-08-09] MEDS: ceFAZolin 2,000 MG in sodium chloride 0.9% (plus) 50 ML 100 MG IV (10:10)
--- NOTE | 2023-08-09 11:23 | ANES.PROC ---
Anesthesia Procedures Procedure/Date: 08/09/23 Nerve Block ^: Nerve Block 1: Main Anesthesia: general anesthesia Time Out Performed: Yes Consent: requested by attending/covering physician, from patient, risks and benefits reviewed and patient agrees to proceed Nerve block location: popliteal (right) Anesthesia monitors applied: pulse oximetry, EKG, BP cuff and oxygen Nerve block position: supine Anesthetic Used: ropivicaine 0.5% Amount of anesthesia used (mL): 30 Ultrasound used to: recognize landmarks Nerve Stimulator Used?: Yes Interscalene/Femoral BLK: 4 stimuplex 21 g needle used for position and inplane approach Injection: neg aspiration of heme Patient Tolerated Procedure: well Complications: none
[2023-08-09] MEDS: BUPivacaine 0.5% INJ 30 mL INJECTION (12:06)
--- NOTE | 2023-08-09 12:16 | W.PM.BPON ---
Date of procedure: 08/09/2023 Surgeon name: Dr. Eleuterio Monique D.P.M. Die Designer Apprentice(s) name(s): None Procedure(s) performed: Right foot first metatarsal phalangeal joint arthrodesis, PIPJ arthrodesis of toes 2 through 4 of right foot Description of findings: Hammertoes right foot with PIPJ contracture and arthritic changes of first metatarsophalangeal joint Estimated blood loss: 10 cc Specimen(s) removed: None Post-operative diagnosis: Hallux rigidus right foot and hammertoes right foot
[2023-08-09] MEDS: fentaNYL 50 mcg/mL INJ 2mL IVP (12:45)
[2023-08-09] MEDS: meperidine 50 mg/mL INJ 12.5 MG IVP ×2 (12:55→13:03)
[2023-08-09] MEDS: ketorolac 30 mg/mL INJ 15 MG IVP (12:55)
--- NOTE | 2023-08-09 13:54 | ANE.PACU2 ---
Inpatient post-anesthesia follow up: Airway intact: Yes Vital signs: Temperature 97.8 F Pulse Rate 68 Respiratory Rate 14 Blood Pressure 141/94 Pulse Oximetry 98 Oxygen Delivery Me thod Room Air Oxygen Flow Rate 6 Fraction of Inspir ed Oxygen Hydration adequate: Yes Nausea and vomiting: No Pain level: 2 Mental status: Baseline
[2023-08-09] MEDS: ondansetron 2 mg/ML SDV 2 mL 4 MG IVP (15:38)
--- NOTE | 2023-08-09 19:30 | PM.OP ---
Operative Report Date of procedure: August 09, 2023 Pre-op diagnosis: Right hallux rigidus, hammertoes 2-4 right foot Post-op diagnosis: same Post-op findings: Degenerative changes to first metatarsal head right foot Procedure done: 1. Right 1st MTPJ fusion CPT 20110 2. PIPJ fusion HTR 2nd digit right foot CPT 00289 3. PIPJ fusion HTR 3rd digit right foot CPT 37694 4. PIPJ fusion HTR 4th digit right foot CPT 82848 Implants: 5 degree 1st MTPJ fusion plate paragon 28 0.045 K-wire x 3 Surgeon: Eleuterio Monique DPM Estimated blood loss: less than 10cc's Complications: none Findings: See above Procedure: Patient is a 58 year-old female that has a history of right hallux rigidus and hammertoes right foot. The patient has had the aforementioned chief complaint for some time. Conservative treatment measures have been attempted and the patient has opted for surgical intervention at this time. A lengthy discussion regarding the procedure, including risks and complications has been had with the patient and is noted in the recent clinic note. Written and verbal consent have been obtained. All patient questions have been answered to the patient?s satisfaction. No written or verbal guarantees have been given or implied. The patient has been NPO since midnight. The history has been reviewed and the history and physical is current. The signed consent was confirmed and placed in the patient chart. Patient imaging has been reviewed and is consistent with the diagnosis. Under mild sedation, the patient was brought into the operating room and placed on the table in the supine position. IV antibiotics were given by the anesthesia team as preoperative surgical prophylaxis. General sedation was then performed by the anesthesia team. A pneumatic tourniquet was then placed about the right thigh. The operative extremity was then prepped and draped in the usual fashion. The extremity was then elevated and exsanguinated before the tourniquet was inflated to 325mmHg. After inflation, the following procedure was then performed. Attention was directed to the right foot where a 6cm incision was made overlying the 1st MTPJ using a #15 blade. Dissection was carried down through subcutaneous tissue and superficial fascia to the level of the 1st MTPJ capsule. This capsule was then incised to expose the 1st metatarsophalangeal joint. There was noted to be dorsal spurring of the joint. Upon further inspection there was significant degenerative changes to the head of the first metatarsal head. Using a sagittal bone saw, the medial eminence of the first metatarsal was removed. A concave reamer on hand held screw tier truck driver was used to remove the cartilage of the first metatarsal head down to level of subchondral bone. The bone of the first metatarsal head was noted to be soft and yellow in discolartion. A convex reamer was then used to ream the articular cartilage from the base of the proximal phalanx. The hallux was then positioned onto the head of the 1st metatarsal and the appropriate anatomic position. It was then temporarily fixated with the guidewire. A 5 degree first metatarsophalangeal joint fusion plate from paragon 28 was inserted over the first metatarsophalangeal joint in preparation for arthrodesis. Good positioning of the plate was noted on C-arm images. The holes of the plate were drilled and fill distally first. Next a short 3 headless compression screw was driven across the arthrodesis site. Good positioning of the screw is noted clinically as well as on the MRI imaging. The compression sleeve of the plate was then drilled and filled before the proximal holes of the plate were filled. Good positioning of the plate and screws was noted clinically as well as on the MRI imaging. Next, attention was directed to the second digit where a #15 blade was used to make a 3 cm incision over the proximal interphalangeal joint. Dissection was carried down to the level of the extensor tendon which was transected transversely to expose the proximal interphalangeal joint. A Sagittal bone saw was used to remove the head of the proximal phalanx as well as the base of the intermediate phalanx. A double-ended K-wire was inserted into the base of the intermediate phalanx and driven out the distal aspect of the toe before driven in retrograde fashion back into the proximal phalanx and into the head of the second metatarsal. Good positioning of the wire was confirmed on C arm imaging. The second digit was noted to be sitting in a rectus position adjacent to the first metatarsophalangeal joint fusion. Next, attention was directed to the third digit where a #15 blade was used to make a 3 cm incision over the proximal interphalangeal joint. Dissection was carried down to the level of the extensor tendon which was transected transversely to expose the proximal interphalangeal joint. A Sagittal bone saw was used to remove the head of the proximal phalanx as well as the base of the intermediate phalanx. A double-ended K-wire was inserted into the base of the intermediate phalanx and driven out the distal aspect of the toe before driven in retrograde fashion back into the proximal phalanx and into the head of the third metatarsal. Next, attention was directed to the fourth digit where a #15 blade was used to make a 3 cm incision over the proximal interphalangeal joint. Dissection was carried down to the level of the extensor tendon which was transected transversely to expose the proximal interphalangeal joint. A Sagittal bone saw was used to remove the head of the proximal phalanx as well as the base of the intermediate phalanx. A double-ended K-wire was inserted into the base of the intermediate phalanx and driven out the distal aspect of the toe before driven in retrograde fashion back into the proximal phalanx and into the head of the fourth metatarsal. The incision sites were then irrigated with copious amounts of sterile saline before attention was directed to closure. Tendons were repaired using 4-0 vicryl. Deep tissue was closed with 3-0 vicryl. Subcuticular closure was performed with 4-0 vicryl and skin was closed with 4-0 nylon. Incisions were dressed with xeroform, 4x4 gauze, kerlix and agusitn. Wires of toes 2-4 were trimmed and bent and capped. Tourniquet was let down and good hyperemic response was noted to all digits of the right foot. The patient tolerated the procedure and anesthesia well and without complication. The patient was transported from the operating room to the recovery room with vital signs stable and vascular status intact to all digits of the right foot. The patient was given both written and verbal instructions to remain non weight bearing to the operative extremity, to keep dressings/splint clean, dry and intact and to take pain medication as directed. The patient will follow-up in the outpatient setting at their scheduled appointment. The patient was discharged with my personal number and was instructed to call if any questions or issues should arise. They were discharged home once anesthesia criteria was met.
== END 2023-08-09 16:20 | disposition home or self-care (01) ==
PROVIDERS: PCP Nurse Practitioner Family; Visit Provider Podiatrist Foot & Ankle Surgery
PROC: (CPT 28740; principal; 2023-08-09 08:20)
PROC: (CPT 28285; 2023-08-09 08:20)
PROC: (CPT 28285; 2023-08-09 08:20)
DX: M20.21 Hallux rigidus, right foot (principal); M20.41 Other hammer toe(s) (acquired), right foot; K21.9 Gastro-esophageal reflux disease without esophagitis; F84.0 Autistic disorder; Z87.891 Personal history of nicotine dependence
CPT/HCPCS: 28285 ×3; 28750; 73620; 76000; C1713; J0131; J0690; J1100; J1885; J2175; J2405; J2704; J2795; J3010; J3490; J7030

== ENCOUNTER → 2023-08-23 14:40 | Outpatient (BNVA) | payer MEDICARE, SELFPAY | PROVIDERS: PCP Nurse Practitioner Family; Visit Provider Podiatrist Foot & Ankle Surgery | DX: Z98.890 Other specified postprocedural states (principal); B35.1 Tinea unguium; M20.5X1 Other deformities of toe(s) (acquired), right foot | CPT/HCPCS: 73630; 99024; A4590; A6219 ==

== ENCOUNTER → 2023-09-06 12:53 | Outpatient (BNVA) | payer MEDICARE, SELFPAY | PROVIDERS: PCP Nurse Practitioner Family; Visit Provider Podiatrist Foot & Ankle Surgery | DX: M20.5X1 Other deformities of toe(s) (acquired), right foot (principal); Z98.890 Other specified postprocedural states; B35.1 Tinea unguium | CPT/HCPCS: 73630; 99024 ==

== ENCOUNTER 2023-09-07 06:00 | Outpatient (CLI) | payer MEDICARE, SELFPAY | END 2023-09-07 23:59 | disposition home or self-care (01) | LOC: SPT 11-14 12:02 | PROVIDERS: PCP Nurse Practitioner Family; Visit Provider Podiatrist Foot & Ankle Surgery | DX: Z47.89 Encounter for other orthopedic aftercare (principal); M20.5X1 Other deformities of toe(s) (acquired), right foot | CPT/HCPCS: L4361 ==

== ENCOUNTER → 2023-09-20 13:25 | Outpatient (BNVA) | payer MEDICARE, SELFPAY | PROVIDERS: PCP Nurse Practitioner Family; Visit Provider Podiatrist Foot & Ankle Surgery | DX: Z98.890 Other specified postprocedural states (principal); B35.1 Tinea unguium; M20.5X1 Other deformities of toe(s) (acquired), right foot | CPT/HCPCS: 99024 ==

== ENCOUNTER → 2023-10-04 14:42 | Outpatient (BNVA) | payer MEDICARE, SELFPAY | PROVIDERS: PCP Nurse Practitioner Family; Visit Provider Podiatrist Foot & Ankle Surgery | DX: Z98.890 Other specified postprocedural states; B35.1 Tinea unguium; M20.5X1 Other deformities of toe(s) (acquired), right foot | CPT/HCPCS: 73630; 99024 ==

== ENCOUNTER 2023-10-10 10:09 | Outpatient (CLI) | payer MEDICARE, SELFPAY, MEDICAID ==
--- NOTE | 2023-10-10 10:30 | XR_ITS ---
WS: [id number] Exam: XR shoulder RT min 2V* [id number] Date/Time of Exam: 10/10/2023 10:30 AM Reason For Exam: BILATERAL SHOULDER PAIN The projections of the shoulder reveal no fractures, anomalies, soft tissue swelling, or calcificatio ns. There is normal bony alignment. No irregularity of the bony architecture is noted. IMPRESSION: Negative RIGHT shoulder.
--- NOTE | 2023-10-10 10:30 | XR_ITS ---
WS: [id number] Exam: XR shoulder LT min 2V* [id number] Date/Time of Exam: 10/10/2023 10:30 AM Reason For Exam: BILATERAL SHOULDER PAIN No fracture or dislocation. Mild DJD at the AC joint. Normal soft tissues. IMPRESSION: 1. Mild AC joint DJD otherwise negative LEFT shoulder.
--- NOTE | 2023-10-10 10:56 | XR_ITS ---
WS: [email or web address] Exam: XR knee LT 3V* [id number] Date/Time of Exam: 10/10/2023 11:12 AM Reason For Exam: L KNEE PAIN No fracture or dislocation noted. Articular relationships are intact. No joint effusion. Impression: Normal LEFT knee Kellgren-Karsten Classification: 0
== END 2023-10-10 10:10 | disposition home or self-care (01) ==
PROVIDERS: PCP Nurse Practitioner Family; Visit Provider Nurse Practitioner Family
DX: M25.562 Pain in left knee (principal); M25.512 Pain in left shoulder
CPT/HCPCS: 73030; 73562

== ENCOUNTER → 2023-10-25 12:28 | Outpatient (BNVA) | payer MEDICARE, MEDICAID, SELFPAY | PROVIDERS: PCP Nurse Practitioner Family; Visit Provider Specialist | DX: G31.84 Mild cognitive impairment of uncertain or unknown etiology (principal); F10.21 Alcohol dependence, in remission; F07.81 Postconcussional syndrome | CPT/HCPCS: 96116; 99214 ==

== ENCOUNTER → 2023-11-01 15:22 | Outpatient (BNVA) | payer MEDICARE, SELFPAY, MEDICAID | PROVIDERS: PCP Nurse Practitioner Family; Visit Provider Specialist | DX: G31.84 Mild cognitive impairment of uncertain or unknown etiology (principal); F50.2 Bulimia nervosa; R20.0 Anesthesia of skin; R20.2 Paresthesia of skin; R25.1 Tremor, unspecified | CPT/HCPCS: 80175; 82607; 82746; 99214 ==

== ENCOUNTER 2023-11-15 16:09 | Outpatient (CLI) | payer MEDICARE, SELFPAY ==
--- NOTE | 2023-11-15 16:30 | CT_ITS ---
WS: [id number] CT HEAD TECHNIQUE: Noncontrast CT of the head obtained from the skullbase to the vertex. CLINICAL INFORMATION: G31.84 - Mild cognitive impairment of uncertain or unknow... COMPARISON: None. DLP: 881.[address] scans at [facility] use at least one of these dose optimization techniques: automated e xposure control; mA and/or kV adjustment per patient size (includes targeted exams where dose is matc hed to clinical indication); or iterative reconstruction. FINDINGS: No evidence of intracranial hemorrhage or mass effect. Ventricular system and basal cisterns are william nt. Mild small vessel changes with mild parenchymal volume loss. No extra-axial fluid collections. No evidence of mass or mass effect. Paranasal sinuses and mastoid air cells are well aerated. .Normal visualized soft tissues. IMPRESSION: 1. No evidence of intracranial hemorrhage or mass effect. 2. Mild small vessel changes. Mild parenchymal volume loss. 3. No acute intracranial findings.
== END 2023-11-15 16:10 | disposition home or self-care (01) ==
LOC: RAD 16:10
PROVIDERS: PCP Nurse Practitioner Family; Visit Provider Specialist
DX: G31.84 Mild cognitive impairment of uncertain or unknown etiology (principal)
CPT/HCPCS: 70450

== ENCOUNTER → 2023-12-14 12:41 | Outpatient (BNVA) | payer MEDICARE, SELFPAY | PROVIDERS: PCP Nurse Practitioner Family; Visit Provider Student in an Organized Health Care Education/Training Program | DX: S46.002A Unspecified injury of muscle(s) and tendon(s) of the rotator cuff of left shoulder, initial encounter (principal); X58.XXXA Exposure to other specified factors, initial encounter | CPT/HCPCS: 99213 ==

== ENCOUNTER → 2024-01-03 13:45 | Outpatient (BNVA) | payer MEDICARE, SELFPAY | PROVIDERS: PCP Nurse Practitioner Family; Visit Provider Podiatrist Foot & Ankle Surgery | DX: B35.1 Tinea unguium (principal); M20.5X1 Other deformities of toe(s) (acquired), right foot | CPT/HCPCS: 99213 ==

== ENCOUNTER → 2024-02-14 13:20 | Outpatient (BNVA) | payer MEDICARE, SELFPAY | PROVIDERS: PCP Nurse Practitioner Family; Visit Provider Podiatrist Foot & Ankle Surgery | DX: B35.1 Tinea unguium (principal); Z98.890 Other specified postprocedural states; M20.5X1 Other deformities of toe(s) (acquired), right foot | CPT/HCPCS: 36415; 80053; 99213 ==

== ENCOUNTER 2024-02-22 12:43 | Outpatient (CLI) | payer MEDICARE, SELFPAY ==
[2024-02-22 13:37] LABS: Alanine Aminotransferase 35 U/L (0-33); Albumin Level 4.2 g/dL (3.5-5.2); Alkaline Phosphatase 84 U/L (35-105); Anion Gap 14.6 (5-19); Aspartate Amino Transferase 19 U/L (0-32); Blood Urea Nitrogen 10 mg/dL (8-23); Calcium 9.7 mg/dL (8.5-10.5); Carbon Dioxide 27 mmol/L (22-29); Chloride 105 mmol/L (98-107); Globulin 2.7 g/dL (1.3-4.6); Glomerular Filtration Rate 85.4 mL/min (90-130); Glucose 124 mg/dL (65-115); Osmolality Calculated 296 mOsm/kg (285-295); Potassium 3.6 mmol/L (3.5-5.1); Sodium 143 mmol/L (136-145); Total Bilirubin 0.4 mg/dL (0.15-1.2); Total Protein 6.9 g/dL (6.6-8.7)
== END 2024-02-22 12:44 | disposition home or self-care (01) ==
LOC: LAB 12:44
PROVIDERS: PCP Nurse Practitioner Family; Visit Provider Podiatrist Foot & Ankle Surgery
DX: B35.1 Tinea unguium (principal)
CPT/HCPCS: 36415; 80053

== ENCOUNTER 2024-02-22 14:28 | Outpatient (CLI) | payer MEDICARE, SELFPAY ==
--- NOTE | 2024-02-22 14:36 | XR_ITS ---
WS: [email or web address] Exam: XR chest 2V* [id number] Date/Time of Exam: 02/22/2024 2:41 PM Reason For Exam: SOB, chest pain No priors. The lungs are clear and fully inflated. Normal cardiomediastinal silhouette. No pleural effusions. Re gional bony elements are intact. IMPRESSION: 1. No acute cardiopulmonary finding.
== END 2024-02-22 14:29 | disposition home or self-care (01) ==
LOC: RAD 14:30
PROVIDERS: PCP Nurse Practitioner Family; Visit Provider Nurse Practitioner Family
DX: R06.02 Shortness of breath (principal)
CPT/HCPCS: 71046

== ENCOUNTER → 2024-04-05 12:04 | Outpatient (BNVA) | payer MEDICARE, SELFPAY | PROVIDERS: PCP Nurse Practitioner Family; Visit Provider Specialist | DX: G31.84 Mild cognitive impairment of uncertain or unknown etiology (principal) | CPT/HCPCS: 96116; G0463 ==

== ENCOUNTER → 2024-05-21 10:14 | Outpatient (BNVA) | payer MEDICARE, SELFPAY | PROVIDERS: PCP Nurse Practitioner Family; Referring Provider Nurse Practitioner Family; Visit Provider Student in an Organized Health Care Education/Training Program | DX: M76.11 Psoas tendinitis, right hip | CPT/HCPCS: 73502; 99213 ==

== ENCOUNTER 2024-06-14 13:06 | Outpatient (CLI) | payer MEDICARE, SELFPAY ==
--- NOTE | 2024-06-14 13:18 | MM_ITS ---
WS: [id number] BILATERAL 3D TOMOSYNTHESIS DIGITAL SCREENING MAMMOGRAPHY WITH CAD CLINICAL INFORMATION: SCREENING HISTORY: Screening mammogram. No current complaints. COMPARISON: 2020 TECHNIQUE: Bilateral CC and MLO views. FINDINGS: Bilateral breast implants appear stable. The breasts are composed of heterogeneous fibroglandular density tissue, which can limit the detectio n of small underlying mass lesions. No suspicious mass, asymmetry, calcifications, or architectural d istortion. No evidence of malignancy. MM/[place] [id number] IMPRESSION: BI-RADS: 2-Benign FOLLOW UP: 1 Year Follow-up Recommend return to annual screening mammography.
== END 2024-06-14 13:07 | disposition home or self-care (01) ==
LOC: RAD 13:06
PROVIDERS: PCP Nurse Practitioner Family; Visit Provider Nurse Practitioner Family
DX: Z12.31 Encounter for screening mammogram for malignant neoplasm of breast (principal)
CPT/HCPCS: 77063; 77067

== ENCOUNTER → 2024-07-17 08:16 | Outpatient (BNVA) | payer MEDICARE, SELFPAY | PROVIDERS: PCP Nurse Practitioner Family; Visit Provider Internal Medicine Rheumatology | DX: M05.79 Rheumatoid arthritis with rheumatoid factor of multiple sites without organ or systems involvement (principal); Z79.899 Other long term (current) drug therapy; Z71.85 Encounter for immunization safety counseling; M19.90 Unspecified osteoarthritis, unspecified site; Z11.59 Encounter for screening for other viral diseases; Z11.1 Encounter for screening for respiratory tuberculosis | CPT/HCPCS: 36415; 80076; 82565; 85007; 85025; 85651; 86140; 86480; 86704; 86803; 87340; 99204 ==

== ENCOUNTER → 2024-08-30 12:24 | Outpatient (BNVA) | payer MEDICARE, SELFPAY | PROVIDERS: PCP Nurse Practitioner Family; Referring Provider Nurse Practitioner Family; Visit Provider Specialist | DX: G31.84 Mild cognitive impairment of uncertain or unknown etiology (principal) | CPT/HCPCS: 0346U; 82542; 99213; 99214 ==

== ENCOUNTER → 2024-09-03 10:09 | Outpatient (BNVA) | payer MEDICARE, SELFPAY | PROVIDERS: PCP Nurse Practitioner Family; Visit Provider Podiatrist Foot & Ankle Surgery | DX: L60.3 Nail dystrophy (principal) | CPT/HCPCS: 99213 ==

== ENCOUNTER → 2024-10-01 10:05 | Outpatient (BNVA) | payer MEDICARE, SELFPAY | PROVIDERS: PCP Nurse Practitioner Family; Visit Provider Podiatrist Foot & Ankle Surgery | DX: L60.3 Nail dystrophy (principal) | CPT/HCPCS: 99213 ==

== ENCOUNTER → 2024-11-11 10:45 | Outpatient (BNVA) | payer MEDICARE, SELFPAY | PROVIDERS: PCP Nurse Practitioner Family; Visit Provider Internal Medicine Rheumatology | DX: Z79.899 Other long term (current) drug therapy (principal); M05.79 Rheumatoid arthritis with rheumatoid factor of multiple sites without organ or systems involvement; Z71.85 Encounter for immunization safety counseling | CPT/HCPCS: 36415; 80076; 82565; 85025; 85651; 86140; 99214 ==

== ENCOUNTER 2024-12-10 13:59 | Outpatient (CLI) | payer MEDICARE, SELFPAY ==
[2024-12-10 14:23] LABS: Basophils # 0.1 10^3/uL (0.0-0.1); Basophils % 0.7 %; Eosinophils # 0.2 10^3/uL (0.0-0.8); Eosinophils % 2.5 %; Hematocrit 40.2 % (36-47); Lymphocytes # 3.4 10^3/uL (0.8-4.8); Lymphocytes % 50.2 %; Mean Corpuscular HGB Conc 31.8 g/dL (30-55); Mean Corpuscular Hemoglobin 31.6 pg (27-33); Mean Corpuscular Volume 99.3 fl (85-98); Mean Platelet Volume 9.5 fL (7.4-10.4); Monocytes # 0.2 10^3/uL (0.2-0.9); Monocytes % 3.1 %; Neutrophils % 43.4 %; Nucleated Red Blood Cells % 0 %; Platelet Count 329 10^3/cmm (157-399); Red Blood Count 4.05 10^6/uL (3.85-5.65); Red Cell Distribution Width 13.4 % (12.1-15.1); White Blood Count 6.71 10^3/uL (3.29-11.43)
[2024-12-10 14:30] LABS: Erythrocyte Sedimentation Rate < 1 mm/hr (0-15)
[2024-12-10 14:51] LABS: Alanine Aminotransferase 21 U/L (0-33); Albumin Level 4.3 g/dL (3.5-5.2); Alkaline Phosphatase 74 U/L (35-105); Aspartate Amino Transferase 18 U/L (0-32); Globulin 2.4 g/dL (1.3-4.6); Glomerular Filtration Rate 73.2 mL/min (90-130); Total Bilirubin 0.4 mg/dL (0.15-1.2); Total Protein 6.7 g/dL (6.6-8.7)
== END 2024-12-10 14:00 | disposition home or self-care (01) ==
LOC: LAB 14:00
PROVIDERS: PCP Nurse Practitioner Family; Visit Provider Internal Medicine Rheumatology
DX: Z79.899 Other long term (current) drug therapy (principal); M05.79 Rheumatoid arthritis with rheumatoid factor of multiple sites without organ or systems involvement
CPT/HCPCS: 36415; 80076; 82565; 85025; 85651; 86140

== ENCOUNTER → 2025-03-05 09:37 | Outpatient (BNVA) | payer MEDICARE, SELFPAY | PROVIDERS: PCP Nurse Practitioner Family; Visit Provider Podiatrist Foot & Ankle Surgery | DX: M79.671 Pain in right foot (principal); L60.3 Nail dystrophy; M20.5X1 Other deformities of toe(s) (acquired), right foot | CPT/HCPCS: 73630; 99214 ==

== ENCOUNTER → 2025-03-10 12:47 | Outpatient (BNVA) | payer MEDICARE, SELFPAY | PROVIDERS: PCP Nurse Practitioner Family; Visit Provider Internal Medicine Rheumatology | DX: M05.79 Rheumatoid arthritis with rheumatoid factor of multiple sites without organ or systems involvement (principal); Z79.899 Other long term (current) drug therapy; Z71.85 Encounter for immunization safety counseling | CPT/HCPCS: 36415; 80076; 82565; 85025; 85651; 86140; 99214 ==

== ENCOUNTER → 2025-04-16 09:56 | Outpatient (BNVA) | payer MEDICARE, SELFPAY | PROVIDERS: PCP Nurse Practitioner Family; Visit Provider Podiatrist Foot & Ankle Surgery | DX: L60.3 Nail dystrophy (principal); M20.5X1 Other deformities of toe(s) (acquired), right foot | CPT/HCPCS: 99213 ==

== ENCOUNTER 2025-06-16 09:50 | Outpatient (CLI) | payer MEDICARE, SELFPAY ==
--- NOTE | 2025-06-16 10:20 | MM_ITS ---
WS: [id number] BILATERAL SCREENING DIGITAL BREAST MAMMOGRAPHY WITH LUIS DISPLACEMENT VIEWS. CAD PERFORMED. HISTORY: SCREENING COMPARISON: 06/14/2024, 10/26/2021 Bilateral craniocaudal and mediolateral oblique views are performed with tomosynthesis and SM. Luis displacement views in CC and MLO projection also performed. Breasts composition: The breasts are heterogeneously dense, which may obscure small masses. Benign arterial calcifications in each breast. There are no suspicious masses or grouping of calcifications. Implants are intact. No capsular contraction. MM/MM scr tomosynthesis [id number] IMPRESSION: BI-RADS: 2 - Benign FOLLOW-UP: 1 Year Follow-up
--- NOTE | 2025-06-16 12:32 | XRR_ITS ---
PROCEDURE INFORMATION: Exam: XR Cervical Spine Exam date and time: 06/16/2025 12:46 PM Age: 60 years old Clinical indication: Pain; Cervicalgia; Additional info: M54.2 - cervicalgia TECHNIQUE: Imaging protocol: Radiologic exam of the cervical spine. Views: 2 or 3 views. COMPARISON: CR XR chest 2V* [id number] 02/22/2024 2:43 PM FINDINGS: Bones/joints: The odontoid is unremarkable. Normal alignment of the cervical spine. Multilevel mild endplate sclerosis throughout the cervical spine. Intervertebral disc spaces are relatively well preserved throughout the cervical spine. No acute fracture or dislocation. Mild facet joint arthrosis. Soft tissues: Unremarkable. XR/XR cervical spine 3V* [id number] IMPRESSION: 1. Mild multilevel degenerative disease of the cervical spine. 2. No acute cervical spine fracture or dislocation.
[2025-06-16 13:13] LABS: Hematocrit 37.6 % (36-47); Hemoglobin 11.80 g/dL (11.27-16.99); Mean Corpuscular HGB Conc 31.4 g/dL (30-55); Mean Corpuscular Hemoglobin 32.1 pg (27-33); Mean Corpuscular Volume 102.2 fl (85-98); Nucleated Red Blood Cells % 0 %; Platelet Count 243 10^3/cmm (157-399); Red Blood Count 3.68 10^6/uL (3.85-5.65); White Blood Count 8.09 10^3/uL (3.29-11.43)
[2025-06-16 13:37] LABS: Alanine Aminotransferase 14 U/L (0-33); Albumin Level 4.3 g/dL (3.5-5.2); Alkaline Phosphatase 68 U/L (35-105); Aspartate Amino Transferase 16 U/L (0-32); Globulin 2.2 g/dL (1.3-4.6); Total Protein 6.5 g/dL (6.6-8.7)
== END 2025-06-16 09:51 | disposition home or self-care (01) ==
LOC: RAD 09:52
PROVIDERS: Internal Medicine Rheumatology; PCP Nurse Practitioner Family; Visit Provider Nurse Practitioner Family
DX: Z12.31 Encounter for screening mammogram for malignant neoplasm of breast (principal); M54.2 Cervicalgia; Z79.899 Other long term (current) drug therapy; R92.333 Mammographic heterogeneous density, bilateral breasts; R92.1 Mammographic calcification found on diagnostic imaging of breast; Z98.82 Breast implant status; M48.02 Spinal stenosis, cervical region
CPT/HCPCS: 36415; 72040; 77063; 77067; 80076; 82565; 85025; 85651; 86140; 99214

== ENCOUNTER → 2025-07-07 13:36 | Outpatient (BNVA) | payer MEDICARE, SELFPAY | PROVIDERS: PCP Nurse Practitioner Family; Visit Provider Nurse Practitioner Family | DX: M54.2 Cervicalgia (principal); F17.200 Nicotine dependence, unspecified, uncomplicated | CPT/HCPCS: 99214 ==

== ENCOUNTER → 2025-07-14 13:16 | Outpatient (BNVA) | payer MEDICARE, SELFPAY | PROVIDERS: PCP Nurse Practitioner Family; Visit Provider Anesthesiology Pain Medicine | DX: M79.18 Myalgia, other site (principal); M54.2 Cervicalgia | CPT/HCPCS: 20553; 99212; J1010; J3490 ==

== ENCOUNTER → 2025-09-01 11:01 | Outpatient (BNVA) | payer MEDICARE, SELFPAY | PROVIDERS: PCP Nurse Practitioner Family; Visit Provider Specialist | DX: G31.84 Mild cognitive impairment of uncertain or unknown etiology (principal); R51.9 Headache, unspecified | CPT/HCPCS: 36415; 82233; 82234; 82542; 96116; 99214 ==

== ENCOUNTER → 2025-10-14 12:46 | Outpatient (BNVA) | payer MEDICARE, SELFPAY | PROVIDERS: PCP Nurse Practitioner Family; Visit Provider Nurse Practitioner Family | DX: M54.9 Dorsalgia, unspecified (principal); M54.2 Cervicalgia | CPT/HCPCS: 99214 ==

== ENCOUNTER → 2025-11-04 10:42 | Outpatient (BNVA) | payer MEDICARE, SELFPAY | PROVIDERS: PCP Nurse Practitioner Family; Visit Provider Internal Medicine Rheumatology | DX: M05.79 Rheumatoid arthritis with rheumatoid factor of multiple sites without organ or systems involvement (principal); Z79.899 Other long term (current) drug therapy; Z71.85 Encounter for immunization safety counseling | CPT/HCPCS: 36415; 80076; 82565; 85025; 85651; 86140; 99214 ==

== ENCOUNTER → 2025-11-05 15:00 | Outpatient (BNVA) | payer MEDICARE, SELFPAY | PROVIDERS: PCP Nurse Practitioner Family; Visit Provider Podiatrist Foot & Ankle Surgery | DX: M79.671 Pain in right foot (principal) | CPT/HCPCS: 73630 ==

== ENCOUNTER → 2025-11-06 14:26 | Outpatient (BNVA) | payer MEDICARE, SELFPAY | PROVIDERS: PCP Nurse Practitioner Family; Visit Provider Internal Medicine Rheumatology | DX: M25.519 Pain in unspecified shoulder (principal); M05.79 Rheumatoid arthritis with rheumatoid factor of multiple sites without organ or systems involvement | CPT/HCPCS: 20610; J1010; J9999 ==